=== PATIENT | female | born 1945 | race African-American/Black ===

== ENCOUNTER 2018-08-03 07:12 | Day surgery (SDC) | payer MEDICARE, BC ==
[2018-08-03] MEDS ORDERED: LABETALOL HCL 20MG INJ (08:34)
[2018-08-03] MEDS ORDERED: PROPOFOL 40 ML (08:34)
[2018-08-03] MEDS ORDERED: LIDOCAINE 100 MG SYRINGE (08:34)
== END 2018-08-03 15:25 | disposition home or self-care (01) ==
LOC: GIL 07:12
DX: Z12.11 Encounter for screening for malignant neoplasm of colon (principal); K64.3 Fourth degree hemorrhoids; K57.30 Diverticulosis of large intestine without perforation or abscess without bleeding; I10 Essential (primary) hypertension; E11.9 Type 2 diabetes mellitus without complications
CPT/HCPCS: 82962